=== PATIENT | female | born 1985 | race Caucasian/White ===

== ENCOUNTER 2024-07-31 19:32 | Emergency (ER) | payer OTHER ==
[~2024-07-31] VITALS: Ht 172.7 cm; Wt 73.0 kg
[2024-07-31 19:36] VITALS: O2SAT 97
[2024-07-31] MEDS: SODIUM CHLORIDE 0.9% 1,000 ML IV ONE (21:02)
[2024-07-31 21:40] LABS: BASOPHILS % 0.3 % (0.0-2.0); EOSINOPHILS % 0.3 % (0.0-5.0); HEMATOCRIT. 36.5 % (36.0-48.0); HEMOGLOBIN. 12.4 g/dL (12.0-16.0); LYMPHOCYTES % 11.2 % (20.0-50.0); MEAN CORPUSCULAR HEMOGLOBIN 31.4 pg (28.0-32.0); MEAN CORPUSCULAR VOLUME 92.4 fL (81.0-99.0); MEAN PLATELET VOLUME 9.9 fl (7.4-10.4); MONOCYTES % 5.9 % (2.0-8.0); NEUTROPHILS % 82.3 % (40.0-76.0); PLATELET 176 x1000/uL (130-400); RED BLOOD CELL COUNT 3.95 mill/uL (4.2-5.4); RED CELL DISTRIBUTION WIDTH 12.4 % (11.6-14.6); WHITE BLOOD COUNT 9.4 x1000/uL (4.5-11.0)
[2024-07-31 22:37] LABS: CHLORIDE 109 mEq/L (98-107); POTASSIUM 3.5 mEq/L (3.5-5.1); SODIUM 139 mEq/L (136-145)
[2024-07-31 22:38] LABS: CALCIUM 8.1 mg/dL (8.7-10.4); CARBON DIOXIDE 23 mEq/L (21-32)
[2024-07-31 22:43] LABS: CREATININE 0.8 mg/dL (0.6-1.0); GLUCOSE 110 mg/dL (70-105); UREA NITROGEN BLOOD 12 mg/dL (9-23)
[2024-07-31 23:01] LABS: TROPONIN I HIGH SENSITIVITY < 4 ng/L (3.0-34)
[2024-08-01 00:07] LABS: TROPONIN I HIGH SENSITIVITY < 4 ng/L (3.0-34)
[2024-08-01 00:33] VITALS: BP 116/72; PULSE 75; RESP 13; TEMP 36.9; O2SAT 99
== END 2024-08-01 00:56 | disposition home or self-care (01) ==
LOC: ER 19:32
DX: R55 Syncope and collapse (principal); R53.1 Weakness; F10.90 Alcohol use, unspecified, uncomplicated; Z79.899 Other long term (current) drug therapy; Y90.9 Presence of alcohol in blood, level not specified
CPT/HCPCS: 99285; 96360; 71045; 80048; 83880; 85025; 84484; 36415; 93005; J7030